=== PATIENT | female | born 1930 | race Caucasian/White ===

== ENCOUNTER 2019-03-09 10:36 | Outpatient (CLI) | payer MEDICARE ==
[~2019-03-09 10:36] MED LIST: Gadobenate Dimeglumine 529 MG/1 ML (20ML VIAL) ONE
--- NOTE | 2019-03-09 12:03 | MRI ---
Brain MRI with and without contrast: 03/09/2019 COMPARISON: None HISTORY: Alzheimer's disease, memory loss for 4 months TECHNIQUE: Multiplanar multisequence MR imaging of the brain obtained with and without contrast FINDINGS: The diffusion weighted imaging demonstrates no evidence for acute infarction. Axial gradient echo imaging demonstrates no evidence for intracranial hemorrhage. There is mild/moderate diffuse cerebral volume loss with associated prominence of the CSF containing spaces. Mild mucosal thickening of the anterior ethmoid air cells noted bilaterally. Arterial flow voids at axial level of skull base are unremarkable on the T2-weighted imaging. There is no midline shift or mass effect. There is no ventricular enlargement. There is mild perivent ricular T2 hyperintensity suggesting minimal small vessel disease. Postcontrast imaging demonstrates no abnormal enhancement. IMPRESSION: Diffuse cerebral volume loss. No acute findings.
== END 2019-03-09 10:37 | disposition home or self-care (01) ==
LOC: SCSMRI 10:36
PROVIDERS: ATTEND Psychiatry & Neurology Neurology
DX: G30.1 Alzheimer's disease with late onset (principal); G93.89 Other specified disorders of brain
CPT/HCPCS: 70553; 82565; A9577